=== PATIENT | male | born 1950 | race Caucasian/White ===

== ENCOUNTER → 2021-04-26 | Outpatient (CLI) | payer MEDICARE, OTHER ==
--- NOTE | 2021-04-26 08:34 | Diagnostic Imaging Report ---
EXAMINATION: CT abdomen and pelvis without contrast. TECHNIQUE: Multiple contiguous axial images were obtained through the abdomen and pelvis without the use of intravenous contrast. All CT scans use one or more of the following dose optimizing techniques: automated exposure control, MA and/or KvP adjustment based on patient size and exam type or iterative reconstruction. HISTORY: Hematuria COMPARISON: None available. FINDINGS: Limited views of the lower thorax are unremarkable. The liver is normal without focal lesion. There is no biliary ductal dilation. Gallbladder is normal. Pancreas is normal. Spleen is normal. Adrenal glands are normal. There are four stones in left kidney with the largest measuring 7 mm. No ureteral stones are seen. There are no right-sided stones. No suspicious renal lesions. There is no hydronephrosis. Urinary bladder is normal. Visualized bowel is normal in caliber without obstruction or inflammation. No free fluid or air. No abdominal or pelvic lymphadenopathy. There are postsurgical changes of endovascular repair of abdominal aortic aneurysm. There are no suspicious osseus lesions. IMPRESSION: 1. Left renal stones measuring up to 7 mm without obstructing stone. Dictated by: Dictated on workstation # [id number]
== END ==
LOC: RAD FS 07:39
PROVIDERS: ATTEND Family Medicine
DX: N20.0 Calculus of kidney (principal)
CPT/HCPCS: 74176

== ENCOUNTER → 2021-05-06 | Outpatient (CLI) | payer MEDICARE, OTHER ==
--- NOTE | 2021-05-06 12:40 | Diagnostic Imaging Report ---
EXAMINATION: Abdomen 1 view HISTORY: KIDNEY STONE COMPARISON: 04/26/2021 FINDINGS: There is a moderate amount of gas and stool throughout the colon. Nonobstructive bowel gas pattern. No radiopaque foreign body. The lung bases are clear. The osseous structures are intact. No radiopaque stone is seen overlying the left kidney. Endograft is seen. IMPRESSION: 1. No visualized renal calculi or other suspicious radiopaque foreign body. 2. Moderate stool burden. Dictated by: Dictated on workstation # [id number]
== END ==
LOC: RAD FS 10:08
PROVIDERS: ATTEND Urology
DX: N20.0 Calculus of kidney (principal)
CPT/HCPCS: 74018

== ENCOUNTER 2022-04-05 19:33 | Observation (INO) | payer MEDICARE, OTHER ==
[~2022-04-05] VITALS: Ht 180.3 cm; Wt 116.7 kg
[2022-04-05 19:53] LABS: BASOPHILS # (AUTO) 0.1 10^3/uL (0.0-0.1); BASOPHILS % (AUTO) 1 % (0-10); EOSINOPHILS # (AUTO) 0.2 10^3/uL (0.0-0.3); EOSINOPHILS % (AUTO) 1 % (0-10); HEMATOCRIT 43 % (40-54); HEMOGLOBIN 15.4 g/dL (13.3-17.7); LYMPHOCYTES # (AUTO) 2.4 10^3/uL (1.0-4.0); LYMPHOCYTES % (AUTO) 13 % (12-44); MEAN CORPUSCULAR HEMOGLOBIN 30 pg (25-34); MEAN CORPUSCULAR HGB CONC 36 g/dL (32-36); MEAN CORPUSCULAR VOLUME 84 fL (80-99); MEAN PLATELET VOLUME 9.2 fL (9.0-12.2); MONOCYTES # (AUTO) 1.4 10^3/uL (0.0-1.0); MONOCYTES % (AUTO) 7 % (0-12); NEUTROPHILS # (AUTO) 14.4 10^3/uL (1.8-7.8); NEUTROPHILS % (AUTO) 78 % (42-75); PLATELET COUNT 269 10^3/uL (130-400); WHITE BLOOD COUNT 18.6 10^3/uL (4.3-11.0)
[2022-04-05] MEDS ORDERED: morphine INJ 10 MG/ML 1ML (SYR OR VIAL) IVP STA ×2 (19:55→20:34)
[2022-04-05 20:00] LABS: BILIRUBIN,URINE NEGATIVE (NEGATIVE); CLARITY,URINE CLEAR; COLOR,URINE YELLOW; GLUCOSE, URINE (UA) 3+ (NEGATIVE); KETONES,URINE NEGATIVE (NEGATIVE); LEUKOCYTE ESTERASE ,URINE TRACE (NEGATIVE); NITRITE,URINE NEGATIVE (NEGATIVE); PH,URINE 5.5 (5-9); PROTEIN,URINE TRACE (NEGATIVE)
[2022-04-05] MEDS ORDERED: ONDANSETRON 4 MG/2 ML (SDV) Z0FRAN IVP ONE (20:00)
[2022-04-05] MEDS ORDERED: KETOROLAC 30 MG/ML VIAL IVP ONE (20:00)
[2022-04-05] MEDS ORDERED: NS IV 1000 ML 1,000 ML IV SCH ×2 (20:00→20:45)
[2022-04-05 20:09] LABS: RBC,URINE 0-2 /HPF
[2022-04-05 20:10] LABS: BACTERIA,URINE FEW /HPF; SQUAMOUS EPITHELIAL CELL,UR RARE /HPF
[2022-04-05 20:11] LABS: URINE OTHER FEW SPERMATOZOA /HPF
[2022-04-05 20:18] LABS: ATYPICAL LYMPHOCYTES 1 %; BAND NEUTROPHILS 2 %; LYMPHOCYTES % (MANUAL) 8 %; MONOCYTES % (MANUAL) 8 %; NEUTROPHILS % (MANUAL) 80 %; PLATELET ESTIMATE NORMAL; RBC MORPH NORMAL; REACTIVE LYMPHOCYTES 1 %
[2022-04-05 20:20] LABS: ALANINE AMINOTRANSFERASE 23 U/L (0-55); ALKALINE PHOSPHATASE 121 U/L (40-136); BILIRUBIN,TOTAL 0.7 MG/DL (0.1-1.0); BUN/CREATININE RATIO 20; CALCIUM 10.1 MG/DL (8.5-10.1); CARBON DIOXIDE 21 MMOL/L (21-32); CHLORIDE 103 MMOL/L (98-107); CREATININE SERUM 1.09 MG/DL (0.60-1.30); GFR ESTIMATED 73; GLUCOSE 291 MG/DL (70-105); POTASSIUM 4.4 MMOL/L (3.6-5.0); SODIUM 139 MMOL/L (135-145); TOTAL PROTEIN 7.8 GM/DL (6.4-8.2)
[2022-04-05 20:21] LABS: ALBUMIN 4.6 GM/DL (3.2-4.5)
--- NOTE | 2022-04-05 20:29 | Diagnostic Imaging Report ---
PROCEDURE: CT abdomen and pelvis without contrast. TECHNIQUE: Multiple contiguous axial images were obtained through the abdomen and pelvis without the use of intravenous contrast. Auto Exposure Controls were utilized during the CT exam to meet ALARA standards for radiation dose reduction. INDICATION: Left flank pain. COMPARISON: 04/26/2021 FINDINGS: Included portions of the lung bases are clear. CT ABDOMEN: Multiple left-sided pelvic and calyceal calculi are identified. Largest most distal pelvic calcification measures 1.9 x 0.6 cm. As a result, there is moderate asymmetric left-sided hydronephrosis and moderate asymmetric stranding of the perinephric fat. No renal calculi are seen on the right. Additionally, there is no hydroureteronephrosis or other evidence of obstruction on the right. The adrenal glands, spleen and pancreas have an unremarkable noncontrast CT appearance. Liver shows geographic areas of diminished attenuation consistent with geographic hepatic steatosis. There is no loculated fluid collection, free fluid or free air. No abnormal mesenteric or retroperitoneal adenopathy is seen. Patient is status post previous aortobiiliac aneurysm stent graft repair. Osseous structures show no acute abnormality. CT PELVIS: Urinary bladder is unopacified. No calculi are seen within the urinary bladder. There is no loculated fluid collection, free fluid or free air within the pelvis. No abnormal lymph nodes are identified. Osseous structures show no acute abnormality. IMPRESSION: 1. Multiple large left pelvic and calyceal calcifications. There does appear to be obstruction at the UPJ resulting in moderate hydronephrosis. 2. Geographic hepatic steatosis. Dictated by: Dictated on workstation # [id number]
--- NOTE | 2022-04-05 20:33 | ED Abdominal Pain ---
General Chief Complaint: Abdominal/GI Problems Stated Complaint: ABD/BACK PAIN Nursing Triage Note: Pt c/o left side flank pain that radiates to her LLQ abd since 3pm today. Reports nausea but denies v/d. Hx of kidney stones. Source of Information: Patient Exam Limitations: No Limitations History of Present Illness Date Seen by Provider: Apr 05, 2022 Time Seen by Provider: 19:56 Initial Comments Patient is a 71-year-old male who presents with intermittent left lower quadrant pain for the past several hours. Pain is dull rated moderate to severe radiates to the anterior abdomen. Patient reports nausea but denies vomiting. Pain is not worse with palpation, position change or movement. It is not relieved with rest. No fever, chills or rest. Timing/Duration: 4-6 Hours Severity/Quality: Moderate Location: Other Radiation: Other Activities at Onset: Other Modifying Factors: Improves With Other Associated Symptoms: Other Allergies and Home Medications Allergies Coded Allergies: No Known Allergies (Verified Allergy, Unknown, 04/05/22) Patient Home Medication List Home Medication List Reviewed: Yes Review of Systems Review of Systems Constitutional: see HPI EENTM: See HPI Respiratory: See HPI Cardiovascular: See HPI Gastrointestinal: See HPI Genitourinary: See HPI Musculoskeletal: see HPI Skin: see HPI Psychiatric/Neurological: See HPI Endocrine: See HPI Hematologic/Lymphatic: See HPI All Other Systems Reviewed Negative Unless Noted: No Past Iiuzhhi-Kioxse-Fanuit Hx Patient Social History Tobacco Use?: No Use of E-Cig and/or Vaping dev: No Substance use?: No Alcohol Use?: No Pt feels they are or have been: No Immunizations Up To Date First/Initial COVID19 Vaccinat: denies Physical Exam Vital Signs Vital Signs - First Documented 04/05/22 19:40 Temp 36.9 Pulse 125 Resp 17 B/P (MAP) 184/94 (124) Pulse Ox 96 O2 Delivery Room Air Capillary Refill : Less Than 3 Seconds Height/Weight/BMI Height: '" Weight: lbs. oz. kg; 35.00 BMI Method: General Appearance: WD/WN, moderate distress HEENT: PERRL/EOMI, normal ENT inspection Respiratory: lungs clear Cardiovascular: normal peripheral pulses Extremities: normal range of motion, non-tender Back: normal inspection, no CVA tenderness Neurologic/Psychiatric: machine rebuilder II-XII nml as tested, no motor/sensory deficits, alert, oriented x 3 Lymphatic: no adenopathy Focused Exam Sepsis Stage: Ruled Out Progress/Results/Core Measures Results/Orders Lab Results Laboratory Tests Test 04/05/22 19:45 04/05/22 19:50 Range/Units White Blood Count 18.6 H 4.3-11.0 10^3/uL Red Blood Count 5.12 4.30-5.52 10^6/uL Hemoglobin 15.4 13.3-17.7 g/dL Hematocrit 43 40-54 % Mean Corpuscular Volume 84 80-99 fL Mean Corpuscular Hemoglobin 30 25-34 pg Mean Corpuscular Hemoglobin Concent 36 32-36 g/dL Red Cell Distribution Width 12.2 10.0-14.5 % Platelet Count 269 130-400 10^3/uL Mean Platelet Volume 9.2 9.0-12.2 fL Immature Granulocyte % (Auto) 1 % Neutrophils (%) (Auto) 78 H 42-75 % Lymphocytes (%) (Auto) 13 12-44 % Monocytes (%) (Auto) 7 0-12 % Eosinophils (%) (Auto) 1 0-10 % Basophils (%) (Auto) 1 0-10 % Neutrophils # (Auto) 14.4 H 1.8-7.8 10^3/uL Lymphocytes # (Auto) 2.4 1.0-4.0 10^3/uL Monocytes # (Auto) 1.4 H 0.0-1.0 10^3/uL Eosinophils # (Auto) 0.2 0.0-0.3 10^3/uL Basophils # (Auto) 0.1 0.0-0.1 10^3/uL Immature Granulocyte # (Auto) 0.1 0.0-0.1 10^3/uL Neutrophils % (Manual) 80 % Lymphocytes % (Manual) 8 % Monocytes % (Manual) 8 % Band Neutrophils 2 % Atypical Lymphocytes 1 % Reactive Lymphocytes 1 % Platelet Estimate NORMAL Blood Morphology Comment NORMAL Sodium Level 139 135-145 MMOL/L Potassium Level 4.4 3.6-5.0 MMOL/L Chloride Level 103 98-107 MMOL/L Carbon Dioxide Level 21 21-32 MMOL/L Anion Gap 15 H 5-14 MMOL/L Blood Urea Nitrogen 22 H 7-18 MG/DL Creatinine 1.09 0.60-1.30 MG/DL Estimat Glomerular Filtration Rate 73 BUN/Creatinine Ratio 20 Glucose Level 291 H 70-105 MG/DL Calcium Level 10.1 8.5-10.1 MG/DL Corrected Calcium 8.5-10.1 MG/DL Total Bilirubin 0.7 0.1-1.0 MG/DL Aspartate Amino Transf (AST/SGOT) 21 5-34 U/L Alanine Aminotransferase (ALT/SGPT) 23 0-55 U/L Alkaline Phosphatase 121 40-136 U/L Total Protein 7.8 6.4-8.2 GM/DL Albumin 4.6 H 3.2-4.5 GM/DL Urine Color YELLOW Urine Clarity CLEAR Urine pH 5.5 5-9 Urine Specific [place] 1.020 1.016-1.022 Urine Protein TRACE H NEGATIVE Urine Glucose (UA) 3+ H NEGATIVE Urine Ketones NEGATIVE NEGATIVE Urine Nitrite NEGATIVE NEGATIVE Urine Bilirubin NEGATIVE NEGATIVE Urine Urobilinogen 0.2 < = 1.0 MG/DL Urine Leukocyte Esterase TRACE H NEGATIVE Urine RBC (Auto) 1+ H NEGATIVE Urine RBC 0-2 /HPF Urine WBC 10-25 H /HPF Urine Squamous Epithelial Cells RARE /HPF Urine Crystals NONE /LPF Urine Bacteria FEW H /HPF Urine Casts NONE /LPF Urine Mucus MODERATE H /LPF Urine Other FEW SPERMATOZOA /HPF Urine Culture Indicated YES My Orders Orders - JEANNE GARCIA DO Cbc With Automated Diff (04/05/22 19:42) Comprehensive Metabolic Panel (04/05/22 19:42) Ua Culture If Indicated (04/05/22 19:42) Ketorolac Injection (Toradol Injection) (04/05/22 20:00) Morphine Injection (Morphine Injection (04/05/22 19:55) Ondansetron Injection (Zofran Injectio (04/05/22 20:00) Ns Iv 1000 Ml (Sodium Chloride 0.9%) (04/05/22 20:00) Ct Abdomen/Pelvis Wo (04/05/22 19:55) Manual Differential (04/05/22 19:45) Urine Culture (04/05/22 19:50) Morphine Injection (Morphine Injection (04/05/22 20:34) Ns Iv 1000 Ml (Sodium Chloride 0.9%) (04/05/22 20:45) Ceftriaxone 1 Gm Pre-Mix (Rocephin 1 Gm (04/05/22 21:00) Medications Given in ED Current Medications Medications Dose Ordered Sig/Fay Route Start Time Stop Time Status Last Admin Dose Admin Ceftriaxone Sodium/Dextrose 50 ml @ 100 mls/hr ONCE ONCE IV 04/05/22 21:00 04/05/22 21:29 04/05/22 21:01 100 MLS/HR Ketorolac Tromethamine 30 mg ONCE ONCE IVP 04/05/22 20:00 04/05/22 20:01 DC 04/05/22 20:09 30 MG Ondansetron HCl 4 mg ONCE ONCE IVP 04/05/22 20:00 04/05/22 20:01 DC 04/05/22 20:09 4 MG Vital Signs/I&O 04/05/22 19:40 Temp 36.9 Pulse 125 Resp 17 B/P (MAP) 184/94 (124) Pulse Ox 96 O2 Delivery Room Air Blood Pressure Mean: 124 Departure Communication (Admissions) CT abd/pelvis: Large pelvic kidney stone with moderate hydronephrosis Pain addressed. Obstructive stone with UTI and poorly controlled diabetes. IVF, anitbiotics given. Urology consulted. Dr. House to admit. Impression Primary Impression: Urinary tract infection Additional Impression: Kidney stone Disposition: ADMITTED INPATIENT Condition: Stable Admissions Decision to Admit Reason: Admit from ER (General) Decision to Admit/Date: Apr 05, 2022 Time/Decision to Admit Time: 21:14 (Dr. House) Departure-Patient Inst. Referrals: LIV HUMMEL MD (PCP/Family) Primary Care Physician JEANNE GARCIA DO Apr 05, 2022 20:33
[2022-04-05] MEDS ORDERED: cefTRIAXone 1 GM PRE-MIX 50 ML IV ONE (21:00)
[2022-04-06] VITALS (12 sets, daily range): BP systolic 87–184; BP diastolic 49–94
[2022-04-06] MEDS ORDERED: morphine INJ 4 MG/ML 1 ML (VIAL/SYRINGE) IV PRN (00:30)
[2022-04-06] MEDS ORDERED: HYDROmorphone 2 MG/ML VIAL (DILAUDID) IVP PRN (00:30)
[2022-04-06] MEDS ORDERED: diphenhydrAMINE 25 MG TAB (BENADRYL) PO PRN (00:30)
[2022-04-06] MEDS ORDERED: ANTACID SUSP 30 ML UDC (MYLANTA) PO PRN (00:30)
[2022-04-06] MEDS ORDERED: PROMETHAZINE INJ 25 MG/ML (PHENERGAN) AMP IM PRN (00:30)
[2022-04-06] MEDS ORDERED: ONDANSETRON 4 MG/2 ML (SDV) Z0FRAN IV PRN (00:30)
[2022-04-06] MEDS ORDERED: ACETAMINOPHEN 325 MG TABLET PO PRN (00:30)
[2022-04-06] MEDS ORDERED: BISACODYL 10 MG SUPP (DULCOLAX) PR PRN (00:30)
[2022-04-06] MEDS ORDERED: diphenhydrAMINE 50 MG/ML INJ (BENADRYL) IVP PRN (00:30)
[2022-04-06] MEDS ORDERED: MELATONIN 3 MG TABLET PO PRN (00:30)
[2022-04-06] MEDS ORDERED: ONDANSETRON 4 MG (ZOFRAN) ORAL DISSOLVE TAB PO PRN (00:30)
[2022-04-06] MEDS ORDERED: LORazepam 0.5 MG (ATIVAN) TABLET PO PRN (00:30)
[2022-04-06] MEDS ORDERED: cloNIDine 0.1 MG (CATAPRES) TAB PO PRN (00:30)
[2022-04-06] MEDS ORDERED: polyethylene glycoL POWDER 17 GM (MIRALAX) PACK PO PRN (00:30)
[2022-04-06] MEDS ORDERED: RT-ALBUTEROL SULF 2.5 MG/3 ML PRE-MIX VIAL INH PRN (01:15)
[2022-04-06] MEDS: NS IV 1000 ML 1,000 ML IV SCH ×2 (01:21→09:28)
[2022-04-06] MEDS: inSUlin ASPART (NovoLOG) 1 UNIT/0.01 ML (CHARGE PER UNIT) SC SCH ×2 (05:39→12:02)
[2022-04-06] MEDS: KETOROLAC 15 MG/ML VIAL IV SCH ×2 (05:59→11:57)
[2022-04-06] MEDS ORDERED: DOCUSATE SODIUM 100 MG (COLACE) CAP PO SCH (09:00)
[2022-04-06] MEDS ORDERED: proPOfol 200 MG/20 ML (DIPRIVAN) VIAL IV ONE (09:39)
[2022-04-06] MEDS ORDERED: LIDOCAINE PF 2% 5 ML (XYLOCAINE) VIAL ONE (09:39)
[2022-04-06] MEDS ORDERED: SEVOFLURANE (ULTANE) 15 ML INHAL SOLN ONE (09:39)
[2022-04-06] MEDS ORDERED: ONDANSETRON 4 MG/2 ML (SDV) Z0FRAN ONE (09:39)
[2022-04-06] MEDS ORDERED: MIDAZOLAM 2 MG/2 ML (VERSED) VIAL ONE (09:39)
[2022-04-06] MEDS ORDERED: fentaNYL INJ 100 MCG/2 ML AMP ONE (09:39)
--- NOTE | 2022-04-06 10:16 | CONSULTATION REPORT ---
DATE OF SERVICE: ATTENDING PHYSICIAN: Dr. House. SUMMARY: After reviewing the patient's record, x-ray, interviewing him and examining him, this is a 71-year-old white man admitted in the ER in [place] with moderate to severe pain in the left side. He was found by CT to have multiple good size stones in the left renal pelvis and obstructing the UPJ. The patient knew about the stones before. He has seen Dr. Keating in the past for gross hematuria, had a cystoscopy that was negative, but nothing was done for the stones, which apparently at that time were asymptomatic except for the hematuria. The patient denies any previous procedure on the stones at all. His pain is controlled by medication, so he has been having on and off pain. He has moderate hydro. ALLERGIES: He has no known allergies. REVIEW OF SYSTEMS: In the ER, had some nausea, but no vomiting. SOCIAL HISTORY: No alcohol, no smoking, no drugs. FAMILY HISTORY: Noncontributory. PHYSICAL EXAMINATION: GENERAL: Well-nourished, well-developed, in no acute distress during my examination. HEENT: Normocephalic. ENT: Unremarkable. NECK: Supple, no bruits. CHEST: Clear, nontender. HEART: Regular rate and rhythm, no murmur. ABDOMEN: Soft. There is 1+ left CVA tenderness. EXTREMITIES: Lower extremity, no edema or cyanosis. NEUROLOGIC: Grossly intact. Oriented x3. EXTERNAL GENITALIA: Adequate male configuration. His labs were reviewed. His white count in [place] ER was 18,000. His medication list was reviewed. IMPRESSION: 1. Left renal and UPJ stones causing obstruction and pain. 2. Rest of the H and P as per dictation from the ER and medication list reviewed. He is not on blood thinners or aspirin. PLAN: We will take the patient to surgery and attempt to manipulate the stones and insert a stent to drain the kidney and relieve the obstruction and later on discuss what the patient wanted to about the stones as an outpatient. If we failed to do so, he may be considered for a percutaneous nephrostomy if indicated regarding pain and obstruction. The patient was explained all that and understood and wanted the procedure done. CC: Dr. House - requested, unable to deliver. Job ID: [id number] DocumentID: [id number] Dictated Date: 04/06/2022 09:51:18 Scale Clerk Date: 04/06/2022 10:15:44 Dictated By: ROGELIO MCDONNELL MD
[2022-04-06] MEDS ORDERED: SUGAMMADEX 500 MG/5 ML VIAL (BRIDION) IV ONE (10:28)
--- NOTE | 2022-04-06 10:42 | Progress Note-Post Operative ---
Post-Operative Progess Note Surgeon (s)/Process Automation Engineer (s) Surgeon ROGELIO MCDONNELL MD Process Automation Engineer: NONE Pre-Operative Diagnosis LT RENAL STONES Post-Operative Diagnosis SAME Procedure & Operative Findings Date of Procedure 04/06/22 Procedure Performed/Findings CYSTOSCOPY WITH STONES MANIPULATION AND STENT Anesthesia Type GENERAL Estimated Blood Loss Estimated blood loss (mL): NONE Specimens/Packing Specimens Removed NONE Packing: NONE ROGELIO MCDONNELL MD Apr 06, 2022 10:42
[2022-04-06] MEDS ORDERED: ONDANSETRON 4 MG/2 ML (SDV) Z0FRAN IVP PRN (10:45)
[2022-04-06] MEDS ORDERED: HYDROmorphone 2 MG/ML VIAL (DILAUDID) IV ONE (10:45)
[2022-04-06] MEDS ORDERED: LACTATED RINGERS 1,000 ML IV PRN (10:45)
[2022-04-06] MEDS ORDERED: CEFD300C3 PO (12:31)
[2022-04-06] MEDS ORDERED: OXC5T PO (12:31)
--- NOTE | 2022-04-06 13:01 | Short Stay Summary-Hospitalist ---
SUSI OCONNOR 04/06/22 1301: History of Present Illness HPI/Chief Complaint CC: Abdominal pain with radiation to LLQ HPI: 71yo M patient presented to the ED with abdominal pain. Upon imaging it was revealed that the patient had calyceal and pelvic calculi in the left kidney. A UA was also obtained and showed evidence for a UTI. Urology was consulted b ecause the size of the kidney stones warranted stent placement. Source: patient, EMS notes reviewed Date Seen 04/06/22 Time Seen by a Provider: 09:55 Attending Physician Berny Diane MD PCP Admitting Physician: Lorenza Lugo DO Attending Physician: Lorenza Lugo DO Referring Physician Date of Admission Apr 06, 2022 at 00:20 Home Medications & Allergies Home Medications Reviewed patient Home Medication Reconciliation performed by pharmacy medication reconciliations senior maintenance technician and/or nursing. Patients Allergies have been reviewed. Allergies Allergies Coded Allergies No Known Allergies (Verified Allergy, Unknown, 04/05/22) Past Medical/Social/Family Hx Patient Social History Tobacco Use?: Yes Smokeless type used: Chew Smokeless Tobacco Frequency: Current Everyday User Use of E-Cig and/or Vaping dev: No Substance use?: No Alcohol Use?: Yes Alcohol type: Beer Alcohol Frequency: Daily DRINKS 3-4 BEERS A DAY Pt stated abuse/neglect: No Immunizations Up To Date Influenza Vaccine Up-to-Date: No; Not Current First/Initial COVID19 Vaccinat: denies Current Status Advance Directives: No Communicates: Verbally Primary Language: Dutch Preferred Spoken Language: Dutch Is interpretation needed?: No Implanted or Applied Medical D: None Past Medical History Diabetes Kidney Stones Family Medical History Family Hx: Patient reported they had no family history of chronic illness Review of Systems Respiratory: no symptoms reported Cardiovascular: no symptoms reported Gastrointestinal: see HPI Physical Exam Physical Exam Vital Signs Vital Signs - First Documented 04/05/22 04/06/22 04/06/22 19:40 00:30 01:12 Temp 36.9 Pulse 125 Resp 17 B/P (MAP) 184/94 (124) Pulse Ox 96 O2 Delivery Room Air O2 Flow Rate 2.00 FiO2 21 Capillary Refill : Less Than 3 Seconds Height, Weight, BMI Height: '" Weight: lbs. oz. kg; 35.89 BMI Method: Respiratory: Chest Non Tender, Lungs Clear, Normal Breath Sounds, No Accessory Muscle Use, No Respiratory Distress Cardiovascular: Regular Rate, Rhythm, No Edema, No Gallop, No JVD, No Murmur, Normal Peripheral Pulses Results Results/Procedures Labs Laboratory Tests 04/05/22 19:45 Patient resulted labs reviewed. Short Stay Diagnosis Conclusion Plan Renal Stones Measured 1.9x0.6cm Urology consulted Stent placed by urology A stone passed following placement Pain management Discharge today Needs a KUB before leaving Follow up outpatient with urology UTI Started on bactrim Clinical Quality Measures DVT/VTE Risk/Contraindication: Contraindications-Pharm: Other *list below* Other: procedure LORENZA LUGO 04/07/22 0502: History of Present Illness HPI/Chief Complaint Chief complaint: Renal colic History of present illness: This is a 71year-old male who presented to [place] ER with left flank pain found to have a large 2 cm stone in the left kidney. Patient was in severe pain requiring IV Dilaudid and Toradol and IV fluids. Hydronephrosis noted on CT scan. Urgent call to urology was made last night and recommendation of IV fluid for pain control along with Dilaudid and Toradol and will have procedure the following day. Dr. Barrera placed stent with good results. No pain is reported. Source: patient Exam Limitations: no limitations Past Medical/Social/Family Hx Patient Social History Marrital Status: single Smokeless type used: Chew Review of Systems Constitutional: see HPI, malaise, weakness EENTM: no symptoms reported Respiratory: no symptoms reported Cardiovascular: no symptoms reported Gastrointestinal: abdominal pain, loss of appetite, nausea Psychiatric/Neurological: No Symptoms Reported Physical Exam Physical Exam General Appearance: No Apparent Distress, WD/WN, Chronically ill, Obese Eyes: Bilateral Eye Normal Inspection, Bilateral Eye PERRL HEENT: PERRL/EOMI, Normal ENT Inspection, Pharynx Normal Neck: Full Range of Motion, Normal Inspection, Non Tender, Supple, Carotid Bruit Respiratory: Chest Non Tender, Lungs Clear, Normal Breath Sounds, No Accessory Muscle Use, No Respiratory Distress Cardiovascular: Regular Rate, Rhythm, No Edema, No Gallop, No JVD, No Murmur, Normal Peripheral Pulses Gastrointestinal: Normal Bowel Sounds, No Organomegaly, No Pulsatile Mass, Non Tender, Soft Back: Normal Inspection, No CVA Tenderness, No Vertebral Tenderness Extremity: Normal Capillary Refill, Normal Inspection, Normal Range of Motion, Non Tender, No Calf Tenderness, No Pedal Edema Neurologic/Psychiatric: Alert, Oriented x3, No Motor/Sensory Deficits, Normal Mood/Affect Skin: Normal Color, Warm/Dry Lymphatic: No Adenopathy Short Stay Diagnosis Discharge Diagnosis-Short Stay Admission Diagnosis Renal colic 2 centimeter kidney stone with hydronephrosis Final Discharge Diagnosis Renal colic 2 centimeter kidney stone with hydronephrosis status post stent placement with good results Conclusion Plan Discharge home Supervisory-Addendum Brief Verification & Attestation Participated in pt care: history, MDM, physical Personally performed: exam, history, MDM, supervision of care Care discussed with: Medical Student Procedures: n/a Results interpretation: Verified all documentation Verification and Attestation of Medical Student E/M Service A medical student performed and documented this service in my presence. I reviewed and verified all information documented by the medical student and made modifications to such information, when appropriate. I personally performed the physical exam and medical decision making. Lorenza Lugo, Apr 07, 2022,05:02 SUSI OCONNOR Apr 06, 2022 13:01 LORENZA LUGO DO Apr 07, 2022 05:02
--- NOTE | 2022-04-06 14:39 | Diagnostic Imaging Report ---
INDICATION: History of left renal calculi with stent placement. COMPARISON: CT scan of 04/05/2022. FINDINGS: Double-J stent is now present appearing in good position. There are calculi noted along the proximal ureter and within the lower pole calyces of the kidney. IMPRESSION: Satisfactory appearing double-J stent placement on the left with multiple calculi again noted. Dictated by: Dictated on workstation # [id number]
--- NOTE | 2022-04-06 18:26 | OPERATIVE REPORT ---
DATE OF SERVICE: 04/06/2022 PREOPERATIVE DIAGNOSIS: Left renal and UPJ stones. POSTOPERATIVE DIAGNOSIS: Left renal and UPJ stones. OPERATION PERFORMED: Cystoscopy with stone manipulation and insertion of stent. SURGEON: Rambo Mcdonnell MD ANESTHESIA: General. COMPLICATIONS: None. DESCRIPTION OF PROCEDURE: Under satisfactory general anesthesia, the patient in lithotomy position, genitalia were prepped and draped in the usual sterile fashion. Cystoscope was introduced under vision. Anterior urethra had some wide caliber stricture admitting the scope easily. Prostate was not enlarged, and the bladder neck was open. The prostate revealed some trabeculation. Ureteric orifices were normal in shape, size and configuration with clear efflux, very sluggish on the left side. Using the foroblique lens, I passed a 6-Canadian ureteral catheter all the way to the kidney with no problem. I backed up to distal to the stone, flushed some back, but the larger ones remained in its place. I removed the ureteral catheter, inserted a 6-Canadian 28 cm double-J stent, guided fluoroscopically all the way to the left renal pelvis. The guidewire was removed, and the stent was seen draining nicely proximally fluoroscopically and distally endoscopically. Bladder was evacuated and the cystoscope was removed. The patient tolerated the procedure and anesthesia well and was sent to recovery room in stable condition. PLAN: We will probably watch him tonight and let him go home tomorrow. I will see him back in my office next Sunday and we will discuss the next step to take into consideration his size and his multiple good size stones if he could be amenable to an ESWL or a flexible ureteropyeloscopy with laser fragmentation or a percutaneous fragmentation lithotripsy. Job ID: [id number] DocumentID: [id number] Dictated Date: 04/06/2022 10:55:32 Clipper Operator Date: 04/06/2022 18:25:31 Dictated By: RAMBO MCDONNELL MD
[2022-04-06] MEDS ORDERED: cefTRIAXone 1 GM PRE-MIX 50 ML IV SCH (21:00)
--- NOTE | 2022-04-07 10:49 | Anesthesia-General Post-Op ---
General Patient Condition Mental Status/LOC: Same as Preop Cardiovascular: Satisfactory Nausea/Vomiting: Absent Respiratory: Satisfactory Pain: Controlled Complications: Absent Post Op Complications Complications None Follow Up Care/Instructions Patient Instructions None needed. Anesthesia/Patient Condition Patient Condition Patient was doing well, no complaints, stable vital signs, no apparent adverse anesthesia problems. No complications reported per nursing, thus discharged to home same day. AMADOR ESPINOSA CRNA Apr 07, 2022 10:49
== END 2022-04-06 15:30 | disposition home or self-care (01) ==
LOC: EDUNIT# 19:33 → ER FS 19:35 → 4TH 19:36 → UNDOADMOB 04-06 00:20 → UNDODISOB 04-06 15:30
PROVIDERS: ADMIT Internal Medicine; ATTEND Internal Medicine
DX: N20.2 Calculus of kidney with calculus of ureter (principal); N39.0 Urinary tract infection, site not specified
CPT/HCPCS: 36415; 74018; 74176; 76000; 80053; 81000; 82947; 85007; 85027; 87077; 87088; 96376

== ENCOUNTER → 2022-04-14 | Outpatient (CLI) | payer MEDICARE ==
[~2022-04-14] MED LIST: CEFD300C3 PO; OXC5T PO
--- NOTE | 2022-04-14 15:48 | Diagnostic Imaging Report ---
INDICATION: Nephrolithiasis. EXAM: KUB FINDINGS: There is a left-sided double-J ureteral stent. There is fairly opaque material in the lower collecting system of the left kidney and in the left renal pelvis. These could be calculi or trapped contrast. Patient has an aortic stent graft. There is a double-J ureteral stent which appears to be in good position. IMPRESSION: Opaque material in the lower half of the left kidney could be a staghorn calculus. Dictated by: Dictated on workstation # [id number]
== END ==
LOC: RAD 09:46
PROVIDERS: ATTEND Urology
DX: N20.0 Calculus of kidney (principal); Z96.0 Presence of urogenital implants
CPT/HCPCS: 74018